=== PATIENT | female | born 2000 | race Hispanic/Latino ===

== ENCOUNTER 2023-07-06 00:32 | Observation (INO) | payer MEDICAID, OTHER ==
[~2023-07-06] VITALS: Ht 154.9 cm; Wt 76.2 kg
[2023-07-06 00:35] VITALS: BP 110/65; PULSE 111; RESP 18
[2023-07-06 01:10] LABS: APPEARANCE,URINE CLOUDY (CLEAR); BILIRUBIN,URINE NEGATIVE (NEGATIVE); COLOR,URINE LIGHT-YELLOW (YELLOW); GLUCOSE, URINE (UA) NEGATIVE (NEGATIVE); KETONES,URINE NEGATIVE (NEGATIVE); LEUKOCYTE ESTERASE ,URINE 75 Leu/uL (NEGATIVE); NITRATE,URINE NEGATIVE (NEGATIVE); OCCULT BLOOD,URINE NEGATIVE (NEGATIVE); PROTEIN,URINE NEGATIVE (NEGATIVE); UROBILINOGEN,URINE 0.2 mg/dL (0.2-1.0)
[2023-07-06 01:14] LABS: ADD UA MICROSCOPIC YES
[2023-07-06 01:15] LABS: BACTERIA,URINE FEW /HPF (None Seen); MUCUS,URINE RARE LPF (None Seen); SQUAMOUS EPITHELIAL CELL,UR MANY /HPF (0-2)
== END 2023-07-06 02:50 | disposition home or self-care (01) ==
LOC: EDH 00:49 → LDH 00:51
PROVIDERS: ADMIT Obstetrics & Gynecology; ATTEND Obstetrics & Gynecology
DX: O62.9 Abnormality of forces of labor, unspecified (principal); O42.913 Preterm premature rupture of membranes, unspecified as to length of time between rupture and onset of labor, third trimester; O26.893 Other specified pregnancy related conditions, third trimester; R10.2 Pelvic and perineal pain; M54.9 Dorsalgia, unspecified; Z3A.35 35 weeks gestation of pregnancy; Z79.899 Other long term (current) drug therapy
CPT/HCPCS: 96360; 99284; 87088; 81001; 82120; G0378 ×2